=== PATIENT | male | born 1990 | race Two or more races ===

== ENCOUNTER 2022-04-22 07:35 | Emergency (ER) | payer MEDICAID ==
[~2022-04-22] VITALS: Ht 175.3 cm; Wt 90.9 kg
[2022-04-22 08:22] VITALS: BP 107/86
== END 2022-04-22 08:32 | disposition home or self-care (01) ==
LOC: ER 07:35
DX: S61.217D Laceration without foreign body of left little finger without damage to nail, subsequent encounter (principal); Z88.0 Allergy status to penicillin; Z88.1 Allergy status to other antibiotic agents; W26.0XXD Contact with knife, subsequent encounter

== ENCOUNTER 2022-07-28 09:28 | Emergency (ER) | payer MEDICAID ==
[~2022-07-28] VITALS: Ht 170.2 cm; Wt 113.0 kg
[2022-07-28 10:30] VITALS: BP 132/80
== END 2022-07-28 10:59 | disposition home or self-care (01) ==
LOC: ER 09:28
DX: S01.01XD Laceration without foreign body of scalp, subsequent encounter (principal); Z88.0 Allergy status to penicillin; Z88.1 Allergy status to other antibiotic agents; X58.XXXD Exposure to other specified factors, subsequent encounter